=== PATIENT | male | born 1995 | race Hispanic/Latino ===

== ENCOUNTER 2018-05-07 11:36 | Emergency (ER) | payer OTHER ==
[~2018-05-07] VITALS: Ht 165.1 cm; Wt 65.8 kg
[2018-05-07 14:23] VITALS: BP 121/72
== END 2018-05-07 12:58 | disposition home or self-care (01) ==
LOC: FSED 11:36
DX: R50.9 Fever, unspecified (principal); R05 Cough; J11.1 Influenza due to unidentified influenza virus with other respiratory manifestations; F17.210 Nicotine dependence, cigarettes, uncomplicated
CPT/HCPCS: 87400; 99283

== ENCOUNTER 2019-07-02 13:35 | Emergency (ER) | payer OTHER ==
[~2019-07-02] VITALS: Ht 165.1 cm; Wt 65.8 kg
--- OUTSIDE RECORDS SUMMARY | 2019-07-02 13:39 | XMS REPORT ---
Author [facility] Address Unknown Phone Unavailable Care Team Providers Care Public Relations Sales Marketing Name Role Phone Unavailable Unavailable Payers Payer Name Policy Type Policy Number Effective Date Expiration Date Problems This patient has no known problems. Allergies, Adverse Reactions, Alerts Allergy Name Allergy Type Status Severity Reaction(s) Onset Date Inactive Date Treating Clinician Comments No Known Allergies DA Active U 2017-01-15 00:00:00 Medications This patient has no known medications.
== END 2019-07-02 14:00 | disposition home or self-care (01) ==
LOC: FSED 13:35
DX: R59.0 Localized enlarged lymph nodes (principal); L04.0 Acute lymphadenitis of face, head and neck
CPT/HCPCS: 99282